=== PATIENT | female | born 1955 | race Caucasian/White ===

== ENCOUNTER 2021-06-14 13:54 | Outpatient (CLI) | payer OTHER, SELFPAY ==
[2021-06-14 16:52] LABS: Protein, Urine (Random) 11.3 mg/dL (<11.9); Protein:Creat Ratio 174 mg/g CRE (0-200)
[2021-06-14 16:58] LABS: Albumin, Serum 3.8 g/dL (3.2-5.0); BUN 35 mg/dL (7-18); BUN/Creat Ratio 22.3 RATIO (10-20); Calcium,Total 8.8 mg/dL (8.5-10.1); Chloride 105 mmol/L (98-107); Creatinine, Serum 1.57 mg/dL (0.55-1.02); EST Glomerular Filtration Rate 35 mL/min (>60); Est Glom Filt Rate - Afr Amer 42 mL/min (>60); Glucose 86 mg/dL (74-106); Potassium 4.2 mmol/L (3.5-5.1); Sodium Level 137 mmol/L (136-145)
== END 2021-06-14 23:59 | disposition home or self-care (01) ==
PROVIDERS: Visit Provider Internal Medicine Nephrology
DX: E11.22 Type 2 diabetes mellitus with diabetic chronic kidney disease (principal); N18.9 Chronic kidney disease, unspecified
CPT/HCPCS: 36415; 80069; 82570; 84156